=== PATIENT | female | born 1985 | race Caucasian/White ===

== ENCOUNTER 2017-12-03 07:46 | Emergency (ER) | payer BC ==
[~2017-12-03] VITALS: Ht 165.1 cm; Wt 63.5 kg
[2017-12-03] MEDS ORDERED: KETOROLAC 30 MG/ML VIAL. IV ONE (08:00)
[2017-12-03] MEDS ORDERED: KETOROLAC 30 MG/ML VIAL. ONE (08:19)
[2017-12-03 08:20] LABS: BASO % 1 % (0-3); EOS # 0.1 x10^3/uL (0.0-0.7); EOS % 2 % (0-3); HEMATOCRIT 43.9 % (36.0-47.0); LYMPH # 1.6 x10^3/uL (1.0-4.8); LYMPH % 28 % (24-48); MEAN CORPUSCULAR HEMOGLOBIN 33 pg (25-35); MEAN CORPUSCULAR HGB CONC 34 g/dL (31-37); MEAN CORPUSCULAR VOLUME 96 fL (79-100); MONO # 0.4 x10^3/uL (0.0-1.1); MONO % 7 % (0-9); NEUT # 3.5 x10^3uL (1.8-7.7); NEUT % 62 % (31-73); PLATELET COUNT 309 x10^3/uL (140-400); RED BLOOD COUNT 4.57 x10^6/uL (3.50-5.40); RED CELL DISTRIBUTION WIDTH 13.2 % (11.5-14.5); WHITE BLOOD COUNT 5.7 x10^3/uL (4.0-11.0)
--- NOTE | 2017-12-03 08:21 | RAD ---
EXAM: CHEST 1 VIEW History: Chest pain COMPARISON: None available. TECHNIQUE: Single portable radiograph of the chest FINDINGS: The cardiac silhouette is unremarkable. The lungs are clear bilaterally. The costophrenic sulci are clear and well demarcated. IMPRESSION: No radiographic evidence of an acute cardiopulmonary process. Electronically signed by: Az Vick MD (12/03/2017 8:18 AM) [id number]
--- NOTE | 2017-12-03 08:29 | PHYS DOC ---
Past History Past Medical History: Kidney Stones Past Surgical History: Other Smoking: Non-smoker Alcohol Use: Occasionally Drug Use: None Adult General Chief Complaint Chief Complaint: CHEST PAIN [facility] HPI Patient is a 32 year old female who presents with complaining of back and chest pain. Patient states she woke up her usual times this morning and while raising her arm to fix her hair felt a sudden onset of severe pain in her back with radiation to her back as a sharp and severe pain and associated with shortness of breath without dizziness, palpitation, focal neuro deficit, nausea and vomiting. Patient rated her pain 6/10 and states the pain is started about 20 minutes prior to arrival to ER. She states the pain getting worse with movement. Patient does not have any cardiac hysterectomy and denies history of previous chest pain. Review of Systems Review of Systems Constitutional: Denies fever or chills [] Eyes: Denies change in visual acuity, redness, or eye pain [] HENT: Denies nasal congestion or sore throat [] Respiratory: Denies cough or shortness of breath [] Cardiovascular: No additional information not addressed in HPI [] GI: Denies abdominal pain, nausea, vomiting, bloody stools or diarrhea [] : Denies dysuria or hematuria [] Musculoskeletal: Denies back pain or joint pain [] Integument: Denies rash or skin lesions [] Neurologic: Denies headache, focal weakness or sensory changes [] Endocrine: Denies polyuria or polydipsia [] All other systems were reviewed and found to be within normal limits, except as documented in this note. Current Medications Current Medications Current Medications Medications (Trade) Dose Ordered Sig/[facility] Start Time Stop Time Status Last Admin Dose Admin Ketorolac Tromethamine (Toradol 30mg Vial) 30 mg STK-MED ONCE 12/03/17 08:19 12/03/17 08:20 DC Allergies Allergies Allergies Coded Allergies Type Severity Reaction Last Updated Verified No Known Drug Allergies 12/03/17 No Physical Exam Physical Exam Constitutional: Well developed, well nourished, moderate distress, non-toxic appearance. [] HENT: Normocephalic, atraumatic, oropharynx moist. [] Eyes: PERRLA, EOMI, conjunctiva normal, no discharge. [] Neck: Normal range of motion, no tenderness, supple, no stridor. [] Cardiovascular:Heart rate regular rhythm, no murmur [] Lungs & Thorax: Bilateral breath sounds clear to auscultation [] Abdomen: Bowel sounds normal, soft, no tenderness, no masses, no pulsatile masses. [] Skin: Warm, dry, no erythema, no rash. [] Back: No tenderness, no CVA tenderness. [] Extremities: No tenderness, no cyanosis, no clubbing, ROM intact, no edema. [] Neurologic: Alert and oriented X 3, normal motor function, normal sensory function, no focal deficits noted. [] Psychologic: Affect normal, judgement normal, mood normal. [] Current Patient Data Vital Signs Vital Signs Date Time Temp Pulse Resp B/P (MAP) Pulse Ox O2 Delivery O2 Flow Rate FiO2 12/03/17 07:54 98.1 90 18 99 Room Air Lab Results Laboratory Tests Test 12/03/17 08:00 White Blood Count 5.7 x10^3/uL (4.0-11.0) Red Blood Count 4.57 x10^6/uL (3.50-5.40) Hemoglobin 15.0 g/dL (12.0-15.5) Hematocrit 43.9 % (36.0-47.0) Mean Corpuscular Volume 96 fL (79-100) Mean Corpuscular Hemoglobin 33 pg (25-35) Mean Corpuscular Hemoglobin Concent 34 g/dL (31-37) Red Cell Distribution Width 13.2 % (11.5-14.5) Platelet Count 309 x10^3/uL (140-400) Neutrophils (%) (Auto) 62 % (31-73) Lymphocytes (%) (Auto) 28 % (24-48) Monocytes (%) (Auto) 7 % (0-9) Eosinophils (%) (Auto) 2 % (0-3) Basophils (%) (Auto) 1 % (0-3) Neutrophils # (Auto) 3.5 x10^3uL (1.8-7.7) Lymphocytes # (Auto) 1.6 x10^3/uL (1.0-4.8) Monocytes # (Auto) 0.4 x10^3/uL (0.0-1.1) Eosinophils # (Auto) 0.1 x10^3/uL (0.0-0.7) Basophils # (Auto) 0.0 x10^3/uL (0.0-0.2) EKG EKG EKG interpreted by me. EKG at 0 754 showed normal sinus rhythm at rate of 77, right acute ST and T-wave abnormalities.[] Radiology/Procedures Radiology/Procedures [][address] [address] IMAGING REPORT Signed PATIENT: KAYLA ROBINS ACCOUNT: [id number] : 1985 LOCATION: ER AGE: 32 SEX: F EXAM STATUS: PRE ER ORD. PHYSICIAN: GENEVA LEMOS MD REASON: chest pain PROCEDURE: PORTABLE CHEST 1V EXAM: CHEST 1 VIEW History: Chest pain COMPARISON: None available. TECHNIQUE: Single portable radiograph of the chest FINDINGS: The cardiac silhouette is unremarkable. The lungs are clear bilaterally. The costophrenic sulci are clear and well demarcated. IMPRESSION: No radiographic evidence of an acute cardiopulmonary process. Electronically signed by: Az Vick MD (12/03/2017 8:18 AM) [id number] DICTATED AND SIGNED BY: AZ VICK MD DATE: 12/03/17 0817 CC: GENEVA LEMOS MD ~ Course & Med Decision Making Course & Med Decision Making Pertinent Labs and Imaging studies reviewed. (See chart for details) Evaluation of patient in ER showed 5-year-old female patient with complaining of sudden onset of back pain and chest pain that getting worse with movement. Patient had unremarkable EKG, chest x-ray, CBC and CMP and cardiac enzymes and d -dimer. Patient treated with Toradol and Norflex without change of pain and felt better with fentanyl. Plan discharge patient home to diagnose of musculoskeletal chest pain. She instructed to apply ice on her back and chest as needed. [] Dragon Disclaimer Dragon Disclaimer This electronic medical record was generated, in whole or in part, using a voice recognition dictation system. Departure Departure: Impression: Primary Impression: Musculoskeletal chest pain Additional Impression: Back pain Disposition: HOME, SELF-CARE (at 0951) Condition: IMPROVED Patient Instructions: Chest Wall Pain, Musculoskeletal Pain Additional Instructions: Apply ice on your back Follow-up with your primary care physician in 3-5 days Return to ER if not getting better Scripts Hydrocodone Bit/Acetaminophen (NORCO 5-325 TABLET) 1 Each Tablet 1 TAB PO PRN Q6HRS PRN for PAIN, #14 TAB 0 Refills Prov: GENEVA LEMOS MD 12/03/17 Cyclobenzaprine Hcl (CYCLOBENZAPRINE HCL) 10 Mg Tablet 1 TAB PO TID, #30 TAB Prov: GENEVA LEMOS MD 12/03/17 Problem Qualifiers GENEVA LEMOS MD Dec 03, 2017 08:29
--- NOTE | 2017-12-03 08:41 | EKG ---
[address] [address] Test Date: 2017-12-03 Test Time: 07:54:58 Pat Name: KAYLA ROBINS Department: Room: Gender: F [employer] Att[employer]: : 1985 Requested By: GENEVA LEMOS Order Number: [id number] Reading MD: Marcos Higgins MD Measurements Intervals [place] Rate: 77 P: 41 PA: 128 QRS: 55 QRSD: 76 T: 26 QT: 356 QTc: 405 Interpretive Statements SINUS RHYTHM NORMAL ECG Electronically Signed On 12-07-2017 11:53:34 CDT by Marcos Higgins MD
[2017-12-03 08:43] LABS: ALBUMIN 4.1 g/dL (3.4-5.0); ALBUMIN/GLOBULIN RATIO 1.3 (1.0-1.7); CALCIUM 9.2 mg/dL (8.5-10.1); CREATININE 0.9 mg/dL (0.6-1.0); GFR 73.5; TOTAL BILIRUBIN 0.6 mg/dL (0.2-1.0); TOTAL PROTEIN 7.3 g/dL (6.4-8.2)
[2017-12-03] MEDS ORDERED: ORPHENADRINE CITRATE 60 MG/2 ML VIAL. IM ONE (09:00)
[2017-12-03] MEDS ORDERED: HYDR-971 PO (09:53)
[2017-12-03] MEDS ORDERED: CYCL-331 PO (09:53)
[2017-12-03 09:55] VITALS: BP 107/65
== END 2017-12-03 09:58 | disposition home or self-care (01) ==
LOC: ER 07:46
DX: R07.89 Other chest pain (principal); M54.89 Other dorsalgia; Z87.442 Personal history of urinary calculi
CPT/HCPCS: 36415; 71045; 80053; 82553; 84484; 85025; 85379; 93005; 96372; 96374; 96375; 99285; J1885; J2360; J3010

== ENCOUNTER → 2018-05-05 | Outpatient (CLI) | payer BC, OTHER ==
[~2018-05-05] MED LIST: CYCL-331 PO; HYDR-3165 PO
== END | disposition home or self-care (01) ==
LOC: LAB 10:11
PROVIDERS: ATTEND Dentist Oral and Maxillofacial Surgery
DX: T14.90XA Injury, unspecified, initial encounter (principal); W46.1XXA Contact with contaminated hypodermic needle, initial encounter; Y93.89 Activity, other specified; Y92.89 Other specified places as the place of occurrence of the external cause; Y99.8 Other external cause status
CPT/HCPCS: 86703; 86803; 87340

== ENCOUNTER 2020-01-15 12:44 | Emergency (ER) | payer SELFPAY ==
[~2020-01-15] VITALS: Ht 165.1 cm; Wt 64.1 kg
[2020-01-15] MEDS ORDERED: ONDANSETRON PF 4 MG/2 ML VIAL. IVP ONE (13:00)
[2020-01-15] MEDS ORDERED: IV NORMAL SALINE 1,000ML 1,000 ML IV ONE (13:00)
[2020-01-15 13:52] LABS: BASO % 1 % (0-3); EOS # 0.1 x10^3/uL (0.0-0.7); EOS % 2 % (0-3); HEMATOCRIT 43.2 % (36.0-47.0); HEMOGLOBIN 14.4 g/dL (12.0-15.5); LYMPH # 1.8 x10^3/uL (1.0-4.8); LYMPH % 25 % (24-48); MEAN CORPUSCULAR HEMOGLOBIN 32 pg (25-35); MEAN CORPUSCULAR HGB CONC 33 g/dL (31-37); MEAN CORPUSCULAR VOLUME 95 fL (79-100); MONO # 0.5 x10^3/uL (0.0-1.1); MONO % 6 % (0-9); NEUT # 4.8 x10^3uL (1.8-7.7); NEUT % 66 % (31-73); PLATELET COUNT 303 x10^3/uL (140-400); RED BLOOD COUNT 4.55 x10^6/uL (3.50-5.40); RED CELL DISTRIBUTION WIDTH 13.7 % (11.5-14.5); WHITE BLOOD COUNT 7.2 x10^3/uL (4.0-11.0)
[2020-01-15 14:04] LABS: CALCIUM 8.9 mg/dL (8.5-10.1); CREATININE 0.9 mg/dL (0.6-1.0); GFR 72.6; POTASSIUM 3.4 mmol/L (3.5-5.1)
[2020-01-15 14:09] LABS: ALBUMIN 3.7 g/dL (3.4-5.0); ALBUMIN/GLOBULIN RATIO 1.1 (1.0-1.7); TOTAL BILIRUBIN 0.5 mg/dL (0.2-1.0)
[2020-01-15 14:11] LABS: BACTERIA,URINE FEW /HPF (0-FEW); BILIRUBIN,URINE NEG (NEG); CLARITY,URINE HAZY; COLOR,URINE YELLOW; GLUCOSE,URINE NEG (NEG); NITRITE,URINE NEG (NEG); SQUAMOUS EPITHELIAL CELL,UR FEW /LPF; UROBILINOGEN,URINE 0.2 mg/dL (0.2 mg/dL)
[2020-01-15 14:18] VITALS: BP 121/64
--- NOTE | 2020-01-15 14:28 | RAD ---
EXAMINATION: CHEST AP ONLY CLINICAL HISTORY: Shortness of breath EXAM DATE/TIME: 01/15/2020 1:58 PM COMPARISON: 12/03/2017 FINDINGS: Lines, Tubes, and Devices: None. Cardiomediastinal Silhouette: Within normal limits. Lungs and Pleura: No evidence of focal airspace consolidation or pleural effusion. Pulmonary vasculature unremarkable. Bones and Soft Tissues: No acute osseous abnormality. IMPRESSION: No evidence of acute cardiopulmonary abnormality or significant interval change. Electronically signed by: Darwin Vaughn DO (01/15/2020 2:25 PM) [id number]
--- NOTE | 2020-01-15 14:40 | PHYS DOC ---
Past History Past Medical History: No Pertinent History Past Surgical History: Other Additional Past Surgical Histo: ECTOPIC , LITHOTRIPSY AND STENT, HAND AND RIGHT LEG Smoking: Non-smoker Alcohol Use: Occasionally Drug Use: None General Adult EDM: Chief Complaint: FEVER HPI: HPI: 34-year-old female presents with fatigue, body aches, and fever up to 102. She had a fever yesterday. She took ibuprofen and it better. She has felt warm today but did not measure a fever. She had severe fatigue and generalized body aches when she woke up. She is concerned about coronavirus, but does not have any specific COVID-19 exposures. She wears an N-95 at work. Review of Systems: Review of Systems: Constitutional: Fever, fatigue, body aches Eyes: Denies change in visual acuity HENT: Denies nasal congestion or sore throat Respiratory: Mild cough without shortness of breath Cardiovascular: Denies chest pain or edema GI: Denies abdominal pain, nausea, vomiting, bloody stools or diarrhea : Denies dysuria Musculoskeletal: Denies back pain or joint pain Integument: Denies rash Neurologic: Denies headache, focal weakness or sensory changes Endocrine: Denies polyuria or polydipsia Lymphatic: Denies swollen glands Psychiatric: Denies depression or anxiety Heart Score: Risk Factors: Risk Factors: DM, Current or recent (<one month) smoker, HTN, HLP, family history of CAD, obesity. Risk Scores: Score 0 - 3: 2.5% MACE over next 6 weeks - Discharge Home Score 4 - 6: 20.3% MACE over next 6 weeks - Admit for Clinical Observation Score 7 - 10: 72.7% MACE over next 6 weeks - Early Invasive Strategies Current Medications: Current Meds: Current Medications Medications (Trade) Dose Ordered Sig/[facility] Start Time Stop Time Status Last Admin Dose Admin Ondansetron HCl (Zofran) 4 mg 1X ONCE 01/15/20 13:00 01/15/20 13:07 DC 01/15/20 13:45 4 MG Sodium Chloride 1,000 ml @ 1,000 mls/hr 1X ONCE 01/15/20 13:00 01/15/20 14:00 DC 01/15/20 13:45 1,000 MLS/HR Allergies: Allergies: Allergies Coded Allergies Type Severity Reaction Last Updated Verified No Known Drug Allergies 12/03/17 No Physical Exam: PE: Constitutional: Well developed, well nourished, no acute distress, non-toxic appearance. [] HENT: Normocephalic, atraumatic, bilateral external ears normal, oropharynx moist, no oral exudates, nose normal. [] Eyes: PERRLA, EOMI, conjunctiva normal, no discharge. [] Neck: Normal range of motion, no tenderness, supple, no stridor. [] Cardiovascular: Heart rate regular rhythm, no murmur [] Lungs & Thorax: Bilateral breath sounds clear to auscultation [] Abdomen: Bowel sounds normal, soft, no tenderness, no masses, no pulsatile masses. [] Skin: Warm, dry, no erythema, no rash. [] Back: No tenderness, no CVA tenderness. [] Extremities: No tenderness, no cyanosis, no clubbing, ROM intact, no edema. [] Neurologic: Alert and oriented X 3, normal motor function, normal sensory function, no focal deficits noted. [] Psychologic: Affect normal, judgement normal, mood normal. [] Current Patient Data: Labs: Laboratory Tests Test 01/15/20 13:25 01/15/20 13:30 White Blood Count 7.2 x10^3/uL (4.0-11.0) Red Blood Count 4.55 x10^6/uL (3.50-5.40) Hemoglobin 14.4 g/dL (12.0-15.5) Hematocrit 43.2 % (36.0-47.0) Mean Corpuscular Volume 95 fL (79-100) Mean Corpuscular Hemoglobin 32 pg (25-35) Mean Corpuscular Hemoglobin Concent 33 g/dL (31-37) Red Cell Distribution Width 13.7 % (11.5-14.5) Platelet Count 303 x10^3/uL (140-400) Neutrophils (%) (Auto) 66 % (31-73) Lymphocytes (%) (Auto) 25 % (24-48) Monocytes (%) (Auto) 6 % (0-9) Eosinophils (%) (Auto) 2 % (0-3) Basophils (%) (Auto) 1 % (0-3) Neutrophils # (Auto) 4.8 x10^3uL (1.8-7.7) Lymphocytes # (Auto) 1.8 x10^3/uL (1.0-4.8) Monocytes # (Auto) 0.5 x10^3/uL (0.0-1.1) Eosinophils # (Auto) 0.1 x10^3/uL (0.0-0.7) Basophils # (Auto) 0.0 x10^3/uL (0.0-0.2) Sodium Level 139 mmol/L (136-145) Potassium Level 3.4 mmol/L (3.5-5.1) L Chloride Level 105 mmol/L (98-107) Carbon Dioxide Level 24 mmol/L (21-32) Anion Gap 10 (6-14) Blood Urea Nitrogen 12 mg/dL (7-20) Creatinine 0.9 mg/dL (0.6-1.0) Estimated GFR (Cockcroft-Gault) 72.6 BUN/Creatinine Ratio 13 (6-20) Glucose Level 100 mg/dL (70-99) H Lactic Acid Level 1.5 mmol/L (0.4-2.0) Calcium Level 8.9 mg/dL (8.5-10.1) Total Bilirubin 0.5 mg/dL (0.2-1.0) Aspartate Amino Transferase (AST) 15 U/L (15-37) Alanine Aminotransferase (ALT) 23 U/L (14-59) Alkaline Phosphatase 63 U/L (46-116) Total Protein 7.0 g/dL (6.4-8.2) Albumin 3.7 g/dL (3.4-5.0) Albumin/Globulin Ratio 1.1 (1.0-1.7) Urine Collection Type Unknown Urine Color Yellow Urine Clarity Hazy Urine pH 5.5 Urine Specific [place] 1.025 Urine Protein Neg (NEG-TRACE) Urine Glucose (UA) Neg mg/dL (NEG) Urine Ketones (Stick) Neg mg/dL (NEG) Urine Blood Trace (NEG) Urine Nitrite Neg (NEG) Urine Bilirubin Neg (NEG) Urine Urobilinogen Dipstick 0.2 mg/dL (0.2 mg/dL) Urine Leukocyte Esterase Neg (NEG) Urine RBC 3-5 /HPF (0-2) Urine WBC 1-4 /HPF (0-4) Urine Squamous Epithelial Cells Few /LPF Urine Bacteria Few /HPF (0-FEW) Vital Signs: Vital Signs Date Time Temp Pulse Resp B/P (MAP) Pulse Ox O2 Delivery O2 Flow Rate FiO2 01/15/20 14:18 68 20 121/64 (83) 99 Room Air 01/15/20 12:50 99.0 EKG: EKG: [] Radiology/Procedures: Radiology/Procedures: [] Impressions: EXAMINATION: CHEST AP ONLY CLINICAL HISTORY: Shortness of breath EXAM DATE/TIME: 01/15/2020 1:58 PM COMPARISON: 12/03/2017 FINDINGS: Lines, Tubes, and Devices: None. Cardiomediastinal Silhouette: Within normal limits. Lungs and Pleura: No evidence of focal airspace consolidation or pleural effusion. Pulmonary vasculature unremarkable. Bones and Soft Tissues: No acute osseous abnormality. IMPRESSION: No evidence of acute cardiopulmonary abnormality or significant interval change. Electronically signed by: Darwin Ayala DO (01/15/2020 2:25 PM) [id number] DICTATED AND SIGNED BY: DARWIN AYALA DO DATE: 01/15/20 1425 CC: MARISOL WARREN DO; ANUP GIBBONS MD ~ Course & Med Decision Making: Course & Med Decision Making Pertinent Labs and Imaging studies reviewed. (See chart for details) Patient's labs are unremarkable. Her chest x-ray is unremarkable. Her urinalysis is negative for infection. We have swabbed her for COVID-19. These results are pending. She is stable for discharge at this time. [] Dragon Disclaimer: Dragon Disclaimer: This electronic medical record was generated, in whole or in part, using a voice recognition dictation system. Departure Departure: Impression: Primary Impression: Suspected 2019 novel coronavirus infection Disposition: 01 DC HOME SELF CARE/HOMELESS Condition: STABLE Referrals: ANUP GIBBONS MD (PCP) MARISOL WARREN DO Jan 15, 2020 14:40
--- NOTE | 2020-01-17 14:16 | NUR ---
IP: Patient notified of COVID result.
== END 2020-01-15 15:10 | disposition home or self-care (01) ==
LOC: ER 12:44
DX: R53.83 Other fatigue (principal); R50.9 Fever, unspecified; M79.10 Myalgia, unspecified site; Z20.828 Contact with and (suspected) exposure to other viral communicable diseases
CPT/HCPCS: 36415; 71045; 80053; 81001; 83605; 85025; 87040; 96361; 96374; 99284; J2405; J7030; U0003

== ENCOUNTER 2020-04-30 10:13 | Emergency (ER) | payer OTHER ==
[~2020-04-30] VITALS: Ht 165.1 cm; Wt 61.3 kg
--- NOTE | 2020-04-30 10:55 | PHYS DOC ---
Past History Past Medical History: Anxiety, Kidney Stones Past Surgical History: Other Additional Past Surgical Histo: lithotripsy, ectopic removal, right hand surgery Smoking: Non-smoker Alcohol Use: Occasionally Drug Use: None General Adult EDM: Chief Complaint: CHEST WALL PAIN HPI: HPI: Patient is a 34 year old female who presents with shoulder/arm/ and chest discomfort. She states last night left-sided back pain. She used a heating pad to see if that would help, which did not resolve her pain. This morning she woke up and stated the pain seemed more in her chest and, radiated down her arm. She took a Tylenol that did not seem to resolve her pain. She states the pain is worse with moving and with deep breathing, she denies any nausea or vomiting. She denies any recent physical exertion could have been causing musculoskeletal, or costochondritis type pain. She states it is a constant pain that feels deep in her chest. She does not have any history of DVT or PE, no recent long car rides, no hormone therapy including oral contraceptives, no history of cancer. She does state some of her uncles and her grandma have been diagnosed with clotting disorders, but she has never been tested for these or diagnosed with one. She has never had this type of pain before. Review of Systems: Review of Systems: Constitutional: Denies fever or chills Eyes: Denies redness or eye pain HENT: Denies nasal congestion or sore throat Respiratory: Denies cough or shortness of breath Cardiovascular: Denies palpitations. Describes her pain as involving left sided chest, back and arm. GI: Denies abdominal pain, nausea, or vomiting : Denies dysuria or hematuria Musculoskeletal: Denies back pain or joint pain Integument: Denies rash or skin lesions Neurologic: Denies headache, focal weakness or sensory changes Complete systems were reviewed and found to be within normal limits, except as d ocumented in this note. Allergies: Allergies: Allergies Coded Allergies Type Severity Reaction Last Updated Verified No Known Drug Allergies 12/03/17 No Physical Exam: PE: Constitutional: Well developed, well nourished, no acute distress, non-toxic appearance HENT: Normocephalic, atraumatic Eyes: PERRL, EOMI, conjunctiva normal, no discharge Neck: Normal range of motion, no tenderness, supple Lungs & Thorax: No respiratory distress, equal chest rise and fall. CTAB without crackles or wheezes. Heart: RRR no m/r/g. No chest wall tenderness with palpation. Abdomen: Soft, no tenderness Skin: Warm, dry, no erythema, no rash Back: No CVA tenderness. No localized rib pain with palpation. No midline tenderness. Extremities: No tenderness, ROM intact, no edema. Full ROM with both UE without increased pain or discomfort. Neurologic: Alert and oriented X 3, normal motor function, normal sensory function, no focal deficits noted Psychologic: Affect anxious, judgment normal Current Patient Data: Vital Signs: Vital Signs Date Time Temp Pulse Resp B/P (MAP) Pulse Ox O2 Delivery O2 Flow Rate FiO2 04/30/20 10:31 98.4 82 22 124/84 (97) 98 Room Air EKG: EKG: Normal sinus rhythm at [address] elevation. QRS 80, QT/QTc 348/414. Radiology/Procedures: Radiology/Procedures: [] Impressions: PROCEDURE: PORTABLE CHEST 1V XR CHEST 1V History: Reason: LEFT UPPER CHEST PAIN / Spl. Instructions: / History: Comparison: January 15, 2020 Findings: No consolidation or pleural effusion. Normal heart size. No pneumothorax. Impression: 1. No acute cardiopulmonary process. Electronically signed by: Santiago Beyer DO (04/30/2020 11:42 AM) [id number] Heart Score: HEART Score for Chest Pain: HEART Score for Chest Pain Response (Comments) Value History Slighlty/Non-Suspicious 0 ECG Normal 0 Age < 45 0 Risk Factors 1 or 2 Risk Factors 1 Troponin < Normal Limit 0 Total 1 Risk Factors: Risk Factors: DM, Current or recent (<one month) smoker, HTN, HLP, family history of CAD, obesity. Risk Scores: Score 0 - 3: 2.5% MACE over next 6 weeks - Discharge Home Score 4 - 6: 20.3% MACE over next 6 weeks - Admit for Clinical Observation Score 7 - 10: 72.7% MACE over next 6 weeks - Early Invasive Strategies Course & Med Decision Making: Course & Med Decision Making Pertinent Labs and Imaging studies reviewed. (See chart for details) Cristiane Martinez is a 34 yo female who presents today with left sided chest/back and shoulder/arm pain. Her EKG was negative for any acute ST elevation. Her troponin was not elevated and her labs were unremarkable. CXR did not show any sign of focal consolidation or anatomical heart/lung abnormality. Her HEART score is 1 due to FH of CAD in her father, therefor she is very low risk for MACE in the next 6 wks. She is also low risk PE based on the Wells Criteria and her PERC is negative, therefor testing for PE including CT angiogram or D dimer was not indicated. I have given her a Valium to help with her anxiety and decrease pain due to musculoskeletal spasm. She has been undergoing a good deal of stress due to a recent miscarriage in [place], she also has a hx of anxiety and panic attacks that she does not currently have any scheduled prn medication for. She is comfortable with being discharged with a short supply of valium to take as needed to control her symptoms, and will follow up with her PCP for more longitudinal management of these issues. She states her chest discomfort has decreased substantially since being in the ED. We have discussed strict return precautions if she becomes SOB or has increasing chest pain that is not resolving, as well as any other new or concerning symptoms. Patient stable for discharge with outpatient follow-up with PCP. Discussed findings and plan with patient and family, who acknowledge understanding and agreement. Juliocesar Disclaimer: Juliocesar Disclaimer: This electronic medical record was generated, in whole or in part, using a voice recognition dictation system. Departure Departure: Impression: Primary Impression: Atypical chest pain Disposition: 01 DC HOME SELF CARE/HOMELESS Condition: STABLE Referrals: ANUP GIBBONS MD (PCP) Patient Instructions: Anxiety and Panic Attacks, [id number], Chest Pain (Nonspecific), [id number], Costochondritis, [id number]-[id number] Additional Instructions: Increase fluid hydration. Take over the counter Tylenol and/or Ibuprofen for pain or discomfort. Scripts Diazepam (VALIUM) 2 Mg Tablet 2 MG PO Q8HRS PRN for ANXIETY, #10 TAB Prov: MALU BABCOCK DO 04/30/20 PERC Rule for PE PERC Rule for PE Response (Comments) Value Age > 50: No 0 HR > 100: No 0 Sa02 on room air <95%: No 0 Unilateral leg swelling: No 0 Hemoptysis: No 0 Recent surgery or trauma: No 0 Prior PE or DVT: No 0 Hormone use: No 0 Total 0 MALU BABCOCK DO Apr 30, 2020 10:55
[2020-04-30] MEDS ORDERED: ASPIRIN 325 MG TABLET ONE (11:26)
[2020-04-30 11:27] LABS: BASO % 1 % (0-3); EOS # 0.1 x10^3/uL (0.0-0.7); EOS % 1 % (0-3); HEMATOCRIT 43.3 % (36.0-47.0); LYMPH # 1.8 x10^3/uL (1.0-4.8); LYMPH % 22 % (24-48); MEAN CORPUSCULAR HEMOGLOBIN 32 pg (25-35); MEAN CORPUSCULAR HGB CONC 35 g/dL (31-37); MEAN CORPUSCULAR VOLUME 93 fL (79-100); MONO # 0.6 x10^3/uL (0.0-1.1); MONO % 7 % (0-9); NEUT # 5.6 x10^3uL (1.8-7.7); NEUT % 69 % (31-73); PLATELET COUNT 305 x10^3/uL (140-400); RED BLOOD COUNT 4.63 x10^6/uL (3.50-5.40); RED CELL DISTRIBUTION WIDTH 13.5 % (11.5-14.5); WHITE BLOOD COUNT 8.1 x10^3/uL (4.0-11.0)
[2020-04-30] MEDS ORDERED: ASPIRIN 325 MG TABLET PO ONE (11:30)
[2020-04-30 11:43] LABS: CREATININE 0.8 mg/dL (0.6-1.0); GFR 83.1; POTASSIUM 4.1 mmol/L (3.5-5.1)
--- NOTE | 2020-04-30 11:45 | RAD ---
XR CHEST 1V History: Reason: LEFT UPPER CHEST PAIN / Spl. Instructions: / History: Comparison: January 15, 2020 Findings: No consolidation or pleural effusion. Normal heart size. No pneumothorax. Impression: 1. No acute cardiopulmonary process. Electronically signed by: Santiago Beyer DO (04/30/2020 11:42 AM) [id number]
[2020-04-30 11:54] LABS: ALBUMIN 3.9 g/dL (3.4-5.0); ALBUMIN/GLOBULIN RATIO 1.1 (1.0-1.7); MAGNESIUM 2.1 mg/dL (1.8-2.4); TOTAL BILIRUBIN 0.6 mg/dL (0.2-1.0); TOTAL PROTEIN 7.3 g/dL (6.4-8.2)
[2020-04-30 11:58] LABS: CLARITY,URINE HAZY; COLOR,URINE YELLOW
[2020-04-30 11:59] LABS: BACTERIA,URINE FEW /HPF (0-FEW); BILIRUBIN,URINE NEG (NEG); GLUCOSE,URINE NEG (NEG); NITRITE,URINE NEG (NEG); SQUAMOUS EPITHELIAL CELL,UR MANY /LPF; UROBILINOGEN,URINE 0.2 mg/dL (0.2 mg/dL)
[2020-04-30 12:00] LABS: U PREG PATIENT NEGATIVE (NEG)
[2020-04-30] MEDS ORDERED: diazePAM 2 MG TABLET. PO ONE (12:30)
[2020-04-30] MEDS ORDERED: KETOROLAC 15 MG/ML VIAL. IVP ONE (12:30)
[2020-04-30 12:35] VITALS: BP 119/80
[2020-04-30] MEDS ORDERED: DIAZ2TAB PO (12:36)
--- NOTE | 2020-04-30 14:04 | EKG ---
[address] [address] Test Date: 2020-04-30 Test Time: 10:24:25 Pat Name: KAYLA ALBERT Department: Room: Gender: F Reverser: DEVONTE : 1985 Requested By: MALU BABCOCK Order Number: [id number] Reading MD: Measurements Intervals [place] Rate: 85 P: 52 CO: 136 QRS: 58 QRSD: 80 T: 31 QT: 348 QTc: 414 Interpretive Statements SINUS RHYTHM R-S TRANSITION ZONE IN V LEADS DISPLACED TO THE LEFT OTHERWISE NORMAL ECG RI6.02 No previous ECG available for comparison
== END 2020-04-30 12:54 | disposition home or self-care (01) ==
LOC: ER 10:13
DX: R07.89 Other chest pain (principal); M54.89 Other dorsalgia; F41.9 Anxiety disorder, unspecified; Z87.442 Personal history of urinary calculi
CPT/HCPCS: 36415; 71045; 80053; 81001; 81025; 82553; 83690; 83735; 83880; 84484; 85025; 93005; 96374; 99285; J1885

== ENCOUNTER 2020-10-07 16:32 | Emergency (ER) | payer OTHER ==
[~2020-10-07] VITALS: Ht 165.1 cm; Wt 70.7 kg
[~2020-10-07 16:32] MED LIST changes: +DIAZ2TAB PO
[2020-10-07 20:17] LABS: U PREG PATIENT POSITIVE (NEG)
[2020-10-07 20:20] LABS: BACTERIA,URINE 0 /HPF (0-FEW); BILIRUBIN,URINE NEG (NEG); CLARITY,URINE CLEAR; COLOR,URINE YELLOW; GLUCOSE,URINE NEG (NEG); NITRITE,URINE NEG (NEG); RBC,URINE 0 /HPF (0-2); SQUAMOUS EPITHELIAL CELL,UR OCC /LPF; UROBILINOGEN,URINE 0.2 mg/dL (0.2 mg/dL); WBC,URINE 0 /HPF (0-4)
[2020-10-07 20:28] LABS: BASO % 0 % (0-3); EOS # 0.1 x10^3/uL (0.0-0.7); EOS % 1 % (0-3); HEMATOCRIT 39.1 % (36.0-47.0); HEMOGLOBIN 13.5 g/dL (12.0-15.5); LYMPH # 2.1 x10^3/uL (1.0-4.8); LYMPH % 19 % (24-48); MEAN CORPUSCULAR HEMOGLOBIN 33 pg (25-35); MEAN CORPUSCULAR HGB CONC 35 g/dL (31-37); MEAN CORPUSCULAR VOLUME 95 fL (79-100); MONO # 0.7 x10^3/uL (0.0-1.1); MONO % 6 % (0-9); NEUT # 8.1 x10^3uL (1.8-7.7); NEUT % 73 % (31-73); PLATELET COUNT 326 x10^3/uL (140-400); RED BLOOD COUNT 4.13 x10^6/uL (3.50-5.40); RED CELL DISTRIBUTION WIDTH 13.1 % (11.5-14.5)
--- NOTE | 2020-10-07 20:32 | PHYS DOC ---
Past History Past Medical History: Anxiety, Kidney Stones (SHAHANA DAVIS APRN) Past Surgical History: Other Additional Past Surgical Histo: lithotripsy, ectopic removal, right hand surgery (SHAHANA DAVIS APRN) Smoking: Non-smoker Alcohol Use: Occasionally Drug Use: None (SHAHANA DAVIS APRN) General Adult EDM: Chief Complaint: VAGINAL BLEEDING HPI: HPI: Patient is a 34-year-old female presents with vaginal cramping and bleeding a few days ago. Patient states "I did have some vaginal bleeding after intercourse a few days ago but then it stopped". Patient is G5, P1. Patient states "I am not sure if from having abdominal pain or if it is from constipation". Patient states that she takes Colace and prenatals daily. No health history. (SHAHANA DAVIS APRN) Review of Systems: Review of Systems: Constitutional: Denies fever or chills Eyes: Denies change in visual acuity HENT: Denies nasal congestion or sore throat Respiratory: Denies cough or shortness of breath Cardiovascular: Denies chest pain or edema GI: Reports abdominal pain. Denies nausea, vomiting, bloody stools or diarrhea : Denies dysuria Musculoskeletal: Denies back pain or joint pain Integument: Denies rash Neurologic: Denies headache, focal weakness or sensory changes Endocrine: Denies polyuria or polydipsia Lymphatic: Denies swollen glands Psychiatric: Denies depression or anxiety (SHAHANA DAVIS APRN) Allergies: Allergies: Allergies Coded Allergies Type Severity Reaction Last Updated Verified No Known Drug Allergies 12/03/17 No (SHAHANA DAVIS APRN) Physical Exam: PE: Constitutional: Well developed, well nourished, no acute distress, non-toxic appearance. [] HENT: Normocephalic, atraumatic, bilateral external ears normal, oropharynx moist, no oral exudates, nose normal. [] Eyes: PERRLA, EOMI, conjunctiva normal, no discharge. [] Neck: Normal range of motion, no tenderness, supple, no stridor. [] Cardiovascular:Heart rate regular rhythm, no murmur [] Lungs & Thorax: Bilateral breath sounds clear to auscultation [] Abdomen: Bowel sounds normal, soft, no tenderness, no masses, no pulsatile masses. [] Skin: Warm, dry, no erythema, no rash. [] Back: No tenderness, no CVA tenderness. [] Extremities: No tenderness, no cyanosis, no clubbing, ROM intact, no edema. [] Neurologic: Alert and oriented X 3, normal motor function, normal sensory function, no focal deficits noted. [] Psychologic: Affect normal, judgement normal, mood normal. [] (SHAHANA DAVIS APRN) Current Patient Data: Labs: Laboratory Tests Test 10/07/20 14:48 Urine Collection Type Unknown Urine Color Yellow Urine Clarity Clear Urine pH 7.0 Urine Specific [place] 1.015 Urine Protein Neg (NEG-TRACE) Urine Glucose (UA) Neg mg/dL (NEG) Urine Ketones (Stick) Neg mg/dL (NEG) Urine Blood Neg (NEG) Urine Nitrite Neg (NEG) Urine Bilirubin Neg (NEG) Urine Urobilinogen Dipstick 0.2 mg/dL (0.2 mg/dL) Urine Leukocyte Esterase Neg (NEG) Urine RBC 0 /HPF (0-2) Urine WBC 0 /HPF (0-4) Urine Squamous Epithelial Cells Occ /LPF Urine Bacteria 0 /HPF (0-FEW) Urine Test Positive (NEG) Vital Signs: Vital Signs Date Time Temp Pulse Resp B/P (MAP) Pulse Ox O2 Delivery O2 Flow Rate FiO2 10/07/20 16:32 90 20 108/65 98 Room Air (SHAHANA DAVIS APRN) EKG: EKG: [] (SHAHANA DAVIS APRN) Radiology/Procedures: Radiology/Procedures: [] (SHAHANA DAVIS APRN) Heart Score: C/O Chest Pain: No Risk Factors: Risk Factors: DM, Current or recent (<one month) smoker, HTN, HLP, family history of CAD, obesity. Risk Scores: Score 0 - 3: 2.5% MACE over next 6 weeks - Discharge Home Score 4 - 6: 20.3% MACE over next 6 weeks - Admit for Clinical Observation Score 7 - 10: 72.7% MACE over next 6 weeks - Early Invasive Strategies (SHAHANA DAVIS APRN) Course & Med Decision Making: Course & Med Decision Making Pertinent Labs and Imaging studies reviewed. (See chart for details) [] 34-year-old female presents with vaginal cramping. Patient states that she w as bleeding a few days ago after intercourse but has since stopped. Patient described blood as a light pink. Patient is unsure if the cramping is from constipation or from abdominal pain. Patient has had multiple miscarriages. Patient is G5, P1. UA is negative for infection. heart tones 148. Instructed patient to follow-up with HARDENING MACHINE OPERATOR HELPER tomorrow for further management. Pat ient given strict return precautions. Patient is hemodynamically stable. Patient is appreciative and okay with discharge plan. (SHAHANA DAVIS APRN) Course & Med Decision Making Did not see or evaluate patient. Agree with CORPORATE HUMAN RESOURCES MANAGER's work-up and disposition per note. (WIN CORDOVA MD) Dragon Disclaimer: Dragon Disclaimer: This electronic medical record was generated, in whole or in part, using a voice recognition dictation system. (SHAHANA DAVIS APRN) Departure Departure: Impression: Primary Impression: Abdominal pain during in second trimester Disposition: HOME / SELF CARE / HOMELESS Condition: STABLE Referrals: ANUP GIBBONS MD (PCP) Patient Instructions: Abdominal Pain During , [id number], Vaginal Bleeding During , Second Trimester Additional Instructions: You were seen in emergency room for abdominal cramping. Your heart tones were 148. You denied bleeding at this time. Please call your OB in the morning to set up an appointment for further management. Please return emergency room if you have worsening symptoms or concerns. EMERGENCY DEPARTMENT GENERAL DISCHARGE INSTRUCTIONS Thank you for coming to [facility] ([facility]) today and trusting us with you care. We trust that you had a positivie experience in our Emergency Department. If you wish to speak to the department management, you may call the director at . YOUR FOLLOW UP INSTRUCTIONS ARE FOLLOWS: 1. Do you have a private Doctor? If you do not have a private doctor, please ask for a resource list of physicians or clinics that may be able to assist you with follow up care. 2. The Emergency Physician has interpreted your x-rays. The X-Ray specialist will also review them. If there is a change in the findings, you will be notified in 48 hours when at all possible. 3. A lab test or culture has been done, your results will be reviewed and you will be notified if you need a change in treatment. ADDITIONAL INSTRUCTIONS AND INFORMATION: 1. Your care today has been supervised by a physician who is specially trained in emergency care. Many problems require more than one evaluation for a complete diagnosis and treatment. We recommend that you schedule your follow up appointment as recommended to ensure complete treatment of you illness or injury. If you are unable to obtain follow up care and continue to have a problem, or if your condition worsens, we recommend that you return to the ED. 2. We are not able to safely determine your condition over the phone nor are we able to give sound medical advice over the phone. For these safety reasons, if you call for medical advice we will ask you to come to the ED for further evaluation. 3. If you have any questions regarding these discharge instructions please call the ED at [phone]. SAFETY INFORMATION: In the interest of safety, wellness, and injury prevention; we encourage you to wear your sealbelt, if you smoke; quite smoking, and we encourage family to use a protective helmet for bicycling and other sporting events that present an increased risk for head injury. IF YOUR SYMPTOMS WORSEN OR NEW SYMPTOMS DEVELOP, OR YOU HAVE CONCERNS ABOUT YOUR CONDITION; OR IF YOUR CONDITION WORSENS WHILE YOU ARE WAITING FOR YOUR FOLLOW UP APPOINTMENT; EITHER CONTACT YOUR PRIMARY CARE DOCTOR, THE PHYSICIAN WHOSE NAME AND NUMBER YOU WERE GIVEN, OR RETURN TO THE ED IMMEDIATELY. SHAHANA DAVIS APRN Oct 07, 2020 20:32 WIN CORDOVA MD Oct 07, 2020 21:59
[2020-10-07 20:35] VITALS: BP 103/68
[2020-10-07 20:40] LABS: CALCIUM 8.8 mg/dL (8.5-10.1); CREATININE 0.7 mg/dL (0.6-1.0); POTASSIUM 3.5 mmol/L (3.5-5.1)
== END 2020-10-07 20:35 | disposition home or self-care (01) ==
LOC: ER 16:32
DX: O26.892 Other specified pregnancy related conditions, second trimester (principal); R10.9 Unspecified abdominal pain; Z87.442 Personal history of urinary calculi; Z3A.10 10 weeks gestation of pregnancy
CPT/HCPCS: 36415; 80048; 81001; 81025; 84702; 85025; 99283